=== PATIENT | male | born 1980 | race African-American/Black ===

== ENCOUNTER → 2025-04-02 12:41 | Outpatient (CLI) | payer OTHER, SELFPAY ==
[2025-04-02 14:47] LABS: Influenza A - CEPHEID Flu A NEGATIVE (NEGATIVE); Influenza B - CEPHEID Flu B NEGATIVE (NEGATIVE)
[2025-04-02 14:48] LABS: COVID-19 CEPHEID 4-PLEX PCR Negative (Negative)
== END ==
PROVIDERS: Visit Provider Registered Nurse
DX: R05.1 Acute cough (principal)
CPT/HCPCS: 87637